=== PATIENT | male | born 1955 | race Caucasian/White ===

== ENCOUNTER 2016-11-18 12:24 | Inpatient (IN) | payer OTHER ==
[2016-11-18 15:23] LABS: BASOPHIL 0.1 % (0-2); EOSINOPHIL 0.1 % (0-5); HCT 48.6 % (42.0-52.0); HGB 17.2 g/dl (13.2-18.0); LYMPHOCYTE 4.6 % (15-48); MCH 30.2 pg (25.0-31.0); MCHC 35.4 g/dL (32.0-36.0); MCV 85.4 fL (78.0-100.0); MONOCYTE 6.1 % (0-12); MPV 10.7 fL (6.0-9.5); NEUTROPHIL 89.1 % (41-80); PLT 175 K/uL (150-400); RBC 5.69 M/uL (4.70-6.00); RDW 12.9 % (11.5-14.0); WBC 16.8 K/uL (4.0-10.5)
[2016-11-18 15:37] LABS: BILIRUBIN - TOTAL 0.8 mg/dL (0.1-1.0); CREATININE 0.9 mg/dL (0.7-1.2); GLOBULIN (CALCULATION) 3.1 g/dL (2.2-4.2); POTASSIUM 4.2 mmol/L (3.5-5.1); TOTAL PROTEIN 8.1 g/dL (6.4-8.3)
--- NOTE | 2016-11-19 03:35 | NUR ---
PT INFORMED OF MD ORDER TO ANCHOR FONSECA D/T RETENTION, PT WANTS TO HOLD OFF FOR "AWHILE" TO SEE IF HE CAN GO ON HIS OWN. NOTED.
[2016-11-19 05:41] LABS: BASOPHIL 0.1 % (0-2); EOSINOPHIL 0.1 % (0-5); HCT 45.4 % (42.0-52.0); HGB 15.8 g/dl (13.2-18.0); LYMPHOCYTE 7.8 % (15-48); MCH 30.4 pg (25.0-31.0); MCHC 34.8 g/dL (32.0-36.0); MCV 87.5 fL (78.0-100.0); MONOCYTE 7.2 % (0-12); NEUTROPHIL 84.8 % (41-80); PLT 149 K/uL (150-400); RBC 5.19 M/uL (4.70-6.00); RDW 13.4 % (11.5-14.0); WBC 14.7 K/uL (4.0-10.5)
[2016-11-19 05:58] LABS: BILIRUBIN NEGATIVE (NEGATIVE); BLOOD 1+ Ery/uL (NEGATIVE); CLARITY CLEAR (CLEAR); COLOR YELLOW (YELLOW); GLUCOSE (U) NORMAL (NORMAL); KETONE (U) NEGATIVE (NEGATIVE); LEUKOCYTES NEGATIVE Leu/uL (NEGATIVE); NITRITE NEGATIVE (NEGATIVE); PROTEIN NEGATIVE (NEGATIVE); UROBILINOGEN 0.2 mg/dL (0.2-1.0); pH 6.5 (5.0-9.0)
[2016-11-19 06:00] LABS: CREATININE 1.2 mg/dL (0.7-1.2); MAGNESIUM 1.51 mg/dL (1.40-2.10); PHOSPHORUS 3.2 mg/dL (2.7-4.5); POTASSIUM 4.2 mmol/L (3.5-5.1)
[2016-11-19 12:05] LABS: HCT 45.9 % (42.0-52.0); HGB 15.6 g/dl (13.2-18.0); MCH 29.9 pg (25.0-31.0); MCV 88.1 fL (78.0-100.0); MPV 9.8 fL (6.0-9.5); RBC 5.21 M/uL (4.70-6.00); RDW 13.6 % (11.5-14.0); WBC 11.8 K/uL (4.0-10.5)
[2016-11-19 13:00] LABS: CREATININE 1.2 mg/dL (0.7-1.2)
[2016-11-20 05:43] LABS: BASOPHIL 0.1 % (0-2); EOSINOPHIL 0.4 % (0-5); HCT 40.3 % (42.0-52.0); HGB 13.9 g/dl (13.2-18.0); LYMPHOCYTE 12.8 % (15-48); MCH 30.6 pg (25.0-31.0); MCHC 34.5 g/dL (32.0-36.0); MCV 88.8 fL (78.0-100.0); MPV 10.1 fL (6.0-9.5); NEUTROPHIL 79.7 % (41-80); PLT 134 K/uL (150-400); RBC 4.54 M/uL (4.70-6.00); RDW 13.1 % (11.5-14.0); WBC 8.3 K/uL (4.0-10.5)
[2016-11-20 06:03] LABS: CREATININE 1.2 mg/dL (0.7-1.2)
[2016-11-21 04:18] LABS: HCT 41.5 % (42.0-52.0); HGB 14.2 g/dl (13.2-18.0); MCH 29.9 pg (25.0-31.0); MCHC 34.2 g/dL (32.0-36.0); MCV 87.4 fL (78.0-100.0); MPV 9.6 fL (6.0-9.5); RBC 4.75 M/uL (4.70-6.00); RDW 12.9 % (11.5-14.0); WBC 7.9 K/uL (4.0-10.5)
[2016-11-21 04:34] LABS: CREATININE 1.1 mg/dL (0.7-1.2); POTASSIUM 4.2 mmol/L (3.5-5.1)
--- NOTE | 2016-11-22 13:37 | NUR ---
REVIEWED DISCHARGE INSTRUCTIONS, MEDICATIONS AND DR MCADAMS EDUCATED FAMILY O AND PT ON DRESSING CHANGES - DRESSING SUPPLIES GIVEN TO PT REVIEWED APPT DATE AND TIME, PRECAUTIONS PT DENIES PAIN OR DISCOMFORT
== END 2016-11-22 13:42 | disposition home or self-care (01) | DRG 343 ==
LOC: FER 12:24 → FOD 17:09 → FMS 19:25
PROVIDERS: Emergency Medicine; ADMIT Surgery
PROC: 0DTJ0ZZ Resection of Appendix, Open Approach (ICD-10-PCS; principal; 2016-11-18 18:13)
PROC: 0DJD4ZZ Inspection of Lower Intestinal Tract, Percutaneous Endoscopic Approach (ICD-10-PCS; 2016-11-18 18:13)
DX: K35.80 Unspecified acute appendicitis (principal); I10 Essential (primary) hypertension; K21.9 Gastro-esophageal reflux disease without esophagitis; K66.0 Peritoneal adhesions (postprocedural) (postinfection); Z86.73 Personal history of transient ischemic attack (TIA), and cerebral infarction without residual deficits
CPT/HCPCS: 36415; 80048; 80053; 81003; 82150; 83605; 83690; 83735; 84100; 85025; 88304; 94010; J1170; J1885; J2270; J2405; J2543; J2704; J2710; J3010; J3475; Q9967

== ENCOUNTER 2016-12-05 15:28 | Day surgery (SDCO) | payer OTHER ==
[2016-12-05 16:26] LABS: HCT 44.1 % (42.0-52.0); HGB 15.4 g/dl (13.2-18.0); MCH 29.6 pg (25.0-31.0); MCHC 34.9 g/dL (32.0-36.0); MCV 84.6 fL (78.0-100.0); MPV 9.6 fL (6.0-9.5); RBC 5.21 M/uL (4.70-6.00); RDW 12.5 % (11.5-14.0); WBC 7.7 K/uL (4.0-10.5)
[2016-12-05 16:40] LABS: ALBUMIN 4.2 g/dL (3.5-5.0); BILIRUBIN - TOTAL 0.5 mg/dL (0.1-1.0); CREATININE 1.1 mg/dL (0.7-1.2); GLOBULIN (CALCULATION) 3.5 g/dL (2.2-4.2); POTASSIUM 4.2 mmol/L (3.5-5.1); TOTAL PROTEIN 7.7 g/dL (6.4-8.3)
--- NOTE | 2016-12-05 17:27 | NUR ---
PATIENT BROUGHT TO MED SURG ROOM 216 FROM PRE OP. PATIENT IS SCHEDULED TO HAVE WOUND DEBRIDEMENT WITH DR MCADAMS TODAY. ANESTHESIA CURRENTLY INVOLVED IN ANOTHER PROCEDURE AND PATIENT WILL NOT GO TO SURGERY UNTIL 1900. PATIENT ALERT, ORIENTED X3, AT BEDSIDE. LR INFUSING TO #20 IN RIGHT HAND, PATIENT ON ROOM AIR. LEVAQUIN HANGING, NOT TO BE STARTED ON MED SURG BUT RATHER SENT TO SX WITH PATIENT
[2016-12-06] MEDS ORDERED: LEVAQUIN500 MG PO (09:13)
[2016-12-06] MEDS ORDERED: NORCO 5-325 TA1 EACH PO (09:14)
[2016-12-06] MEDS ORDERED: COLACE100 MG PO (09:14)
[2016-12-06] MEDS ORDERED: ZANTAC150 MG PO (09:15)
[2016-12-06] MEDS ORDERED: PRINIVIL10 MG PO (09:15)
== END 2016-12-06 09:26 | disposition home or self-care (01) ==
LOC: FAS 15:28 → FMS 17:00 → FAS 17:00 → EDSTATUS 17:00 → FMS 20:06
PROVIDERS: Nurse Anesthetist, Certified Registered; ADMIT Surgery
DX: T81.4XXA Infection following a procedure, initial encounter (principal); L02.211 Cutaneous abscess of abdominal wall; I10 Essential (primary) hypertension; E78.5 Hyperlipidemia, unspecified; K21.9 Gastro-esophageal reflux disease without esophagitis; Z90.49 Acquired absence of other specified parts of digestive tract; Z98.52 Vasectomy status; Z98.890 Other specified postprocedural states; Z79.899 Other long term (current) drug therapy
CPT/HCPCS: 36415; 80053; 94010; G0378; J1885; J1956; J2704; J3010